=== PATIENT | male | born 2000 | race Caucasian/White ===

== ENCOUNTER 2023-10-30 02:16 | Emergency (ER) | payer BC, SELFPAY ==
[2023-10-30 02:19] VITALS: BP 153/90; PULSE 100; RESP 19; TEMP 36.6; O2SAT 99
--- NOTE | 2023-10-30 02:43 | ED.PSYCH ---
HPI - Psych General Chief Complaint: Psychiatric Symptoms Stated Complaint: laceration Time Seen by Provider: 10/30/23 02:25 History of Present Illness HPI Narrative: Patient is a 23-year-old male presenting with a wrist laceration. States that it was self-inflicted with a paperboard boxes estimator after he got into an argument with friends and became angry. States that he has participated in self-injurious behaviors before that he has never cut this deep. States that it was secondary to his anger after an argument with his roommate. He denies suicidal ideation or homicidal ideation. States that he usually on Lexapro but he lost his pill bottle and has not found it so he has not taken it for a couple of weeks. No further complaints. Related Data Allergies Allergy/AdvReac Type Severity Reaction Status Date / Time No Known Allergies Allergy Verified 10/30/23 02:53 Review of Systems Review of Systems: All systems reviewed & are unremarkable except as noted in HPI and below PMFSH Social History Social History Substance use type: unknown Exam Narrative: GENERAL: Nontoxic, no acute distress, pleasant cooperative HEAD: Normocephalic, atraumatic. EYES: PERRLA and EOMI. ENT: Grossly unremarkable NECK: Supple. CHEST: No respiratory distress. HEART: Regular rate and rhythm EXTREMITIES: Normal range of motion. SKIN: Warm, dry, 4-5cm laceration to volar aspect of left forearm; multiple healed linear scars on both forearms NEURO: No focal deficits. Alert and oriented x3. PSYCH: denies SI/HI Course Vital Signs Vital signs: Vital Signs Temperature 97.9 F 10/30/23 02:19 Pulse Rate 100 10/30/23 02:19 Respiratory Rate 19 10/30/23 02:19 Blood Pressure 153/90 H 10/30/23 02:19 Pulse Oximetry 99 10/30/23 02:19 Oxygen Delivery Room Air 10/30/23 02:19 Temperature 97.7 F 10/30/23 11:34 Pulse Rate 83 10/30/23 11:34 Respiratory Rate 14 10/30/23 11:34 Blood Pressure 134/74 10/30/23 11:34 Pulse Oximetry 97 10/30/23 11:34 Oxygen Delivery Room Air 10/30/23 02:19 Procedures Laceration Laceration 1: Date: 10/30/23 Time: 04:09 Site: upper extremity Side (If applicable): left Size (cm): 5 Description: linear and clean Local Anesthetic: lidocaine 1% and with epi Pre-repair: irrigated ====== Skin Level ====== Skin layer closed with: nylon Size (cm): 3-0 Number of sutures: 8 Technique: simple, interrupted ====== Subcutaneous Layer ====== ====== Muscle Layer ====== ====== Tendon Layer ====== MDM - Psych MDM Narrative Medical decision making narrative: 23-year-old male presenting with self-inflicted laceration to his left forearm after getting into an argument with his roommate and friends. Vitals stable. Exam remarkable for the above. Laceration was repaired, please see procedure note below for further detail. Tolerated without complication. Blood work is unremarkable. Tox screen negative. Ethanol undetectable. UA is unremarkable. Patient is medically clear for behavioral health evaluation. Patient signed out at shift change pending this evaluation. Differential Diagnosis Differential diagnosis: Likely suicidal ideation, depression, acute anxiety and other (Self-injurious behavior) Medical Records Attestation: I reviewed the patient's medical records. Lab Data Attestation: I reviewed the patient's lab results. 10/30/23 02:41 10/30/23 02:41 Labs: Lab Results 10/30/23 10/30/23 10/30/23 Range/Units 02:40 02:41 02:54 WBC 7.1 (4.5-10.0) K/mm3 RBC 5.29 (4.6-6.20) M/mm3 Hgb 16.3 (14.0-18.0) g/dL Hct 48.4 (42.0-52.0) % MCV 91.5 (80-100) fl MCH 30.8 (26-34) pg MCHC 33.7 (32-36) g/dl RDW 12.7 (11.5-14.5) % Plt Count 247 (150-375) k/mm3 MPV 9.7 (7.
[2023-10-30 02:51] LABS: Basophils Absolute Auto 0.1 K/mm3 (0.0-0.1); Basophils Percent Auto 1.1 % (0.2-1.2); Eosinophils Absolute Auto 0.1 K/mm3 (0-0.3); Eosinophils Percent Auto 1.8 % (0-4.4); Hematocrit 48.4 % (42.0-52.0); Hemoglobin 16.3 g/dL (14.0-18.0); Immature Granulocyte Absolute 0.04 K/mm3 (0.00-0.031); Immature Granulocyte Percent A 0.6 % (0-0.5); Lymphocytes Percent Auto 29.8 % (18.3-44.2); Mean Corpuscular HGB Conc 33.7 g/dl (32-36); Mean Corpuscular Hemoglobin 30.8 pg (26-34); Mean Corpuscular Volume 91.5 fl (80-100); Mean Platelet Volume 9.7 fl (7.4-10.4); Monocytes Absolute Auto 0.8 K/mm3 (0.1-0.6); Monocytes Percent Auto 11.2 % (2.6-8.5); Neutrophils Absolute Auto 3.9 K/mm3 (1.3-6.7); Neutrophils Percent Auto 55.5 % (45.5-73.1); Platelet Count Result 247 k/mm3 (150-375); Red Blood Count 5.29 M/mm3 (4.6-6.20); Red Cell Distribution Width 12.7 % (11.5-14.5); White Blood Count 7.1 K/mm3 (4.5-10.0)
[2023-10-30] MEDS: Please add drug allergy info to patient profile. 1 EACH XX (02:54)
[2023-10-30] MEDS: TETANUS,DIPHTHERIA,AC PERTUSSIS ADULT (0.5 ML) BOOSTRIX IM (03:02)
[2023-10-30 03:10] LABS: Alanine Aminotransferase 61 U/L (6-50); Albumin Level 4.8 g/dL (3.5-5.1); Alkaline Phosphatase 60 U/L (38-126); Anion Gap 9 mmol/L (8-16); Aspartate Amino Transferase 37 U/L (17-59); Bilirubin,Total 0.7 mg/dL (0.2-1.3); Blood Urea Nitrogen 16 mg/dL (9-20); Calcium 9.2 mg/dL (8.4-10.2); Carbon Dioxide 27 mmol/L (22-30); Chloride 105 mmol/L (98-107); Estimated CRCL calculation 132 ml/min; Estimated Glomerular Filt Rate > 60; Glucose 100 mg/dL (65-110); Potassium 3.9 mmol/L (3.4-5.0); Sodium 141 mmol/L (137-145)
[2023-10-30 03:41] LABS: Influenza A QL RT-PCR Negative (Negative); Influenza B QL RT-PCR Negative (Negative); RSV RNA, RT-PCR Negative (Negative); SARS-CoV-2 RNA PCR Negative (Negative)
[2023-10-30 04:10] LABS: Ethanol < 10 mg/dL (<10)
[2023-10-30 06:22] LABS: Appearance Urine Clear (Clear); Bilirubin Urine Negative (Negative); Blood Urine Negative (Negative); Color Urine Yellow (Yellow); Glucose Urine UA Negative (Negative); Ketones Urine Negative (Negative); Leukocyte Esterase Ur Negative LEU/UL (Negative); Nitrate Urine Negative (Negative); Protein Urine Negative (Negative); Specific Grav Ur 1.016 (1.001-1.035); pH Urine 6.5 (5.0-9.0)
[2023-10-30 06:49] LABS: Amphetamine Screen Urine Negative (Negative); Barbiturate Screen Urine Negative (Negative); Benzodiazepines Screen Urine Negative (Negative); Cannabinoid Screen Urine Negative (Negative); Cocaine Screen Urine Negative (Negative); Methadone Screen Urine Negative (Negative); Opiate Screen Urine Negative (Negative); Phencyclidine Screen Urine Negative (Negative)
[2023-10-30 07:00] LABS: Add Urine Microscopic? NO
[2023-10-30 11:34] VITALS: BP 134/74; PULSE 83; RESP 14; TEMP 36.5; O2SAT 97
--- NOTE | 2023-10-30 12:13 | PC.NURSE ---
Lunch tray ordered for pt.
--- NOTE | 2023-10-30 17:24 | PC.NURSE ---
precautionary dinner tray ordered
== END 2023-10-30 18:20 ==
PROVIDERS: Emergency Provider Emergency Medicine
DX: S61.512A Laceration without foreign body of left wrist, initial encounter (principal); R45.88 Nonsuicidal self-harm; F32.A Depression, unspecified; Z23 Encounter for immunization; T43.226A Underdosing of selective serotonin reuptake inhibitors, initial encounter; Z91.138 Patient's unintentional underdosing of medication regimen for other reason; Z11.52 Encounter for screening for COVID-19; W27.8XXA Contact with other nonpowered hand tool, initial encounter
CPT/HCPCS: 12002; 36415; 80053; 80307; 81003; 84443; 85025; 87637; 90471; 90715; 99285